=== PATIENT | male | born 1955 | race Caucasian/White ===

== ENCOUNTER 2017-04-25 08:35 | Inpatient (IN) | payer MEDICAID ==
[2017-04-25] MEDS ORDERED: ACETAMINOPHEN 325 MG TABLET ONE (11:15)
[2017-04-25] MEDS ORDERED: CEFAZOLIN SODIUM/DEXTROSE,ISO 50 ML IV ONE (11:15)
[2017-04-25] MEDS ORDERED: oxyCODONE HCL SR 10MG TAB.SR.12H PO ONE (11:15)
[2017-04-25] MEDS ORDERED: CELECOXIB 100 MG CAPSULE ONE (11:29)
[2017-04-25] MEDS ORDERED: MIDAZOLAM HCL 2 MG/2ML VIAL ONE (12:06)
[2017-04-25] MEDS ORDERED: MORPHINE SULFATE/PF 10 MG/10ML (1MG/ML) AMPUL ONE (12:06)
[2017-04-25] MEDS ORDERED: BACITRACIN 50000 UNITS/VIAL ONE (12:51)
[2017-04-25] MEDS ORDERED: ANESTHESIA TRAY IN PYXIS 1 EA TRAY MC ONE (13:12)
[2017-04-25] MEDS ORDERED: TRANEXAMIC ACID 1,500 MG in SODIUM CHLORIDE IRRIG SOLUTION 85 ML IR ONE (14:00)
[2017-04-25] MEDS ORDERED: SODIUM CHLORIDE IRRIG IR ONE (14:00)
[2017-04-25] MEDS ORDERED: TRANEXAMIC ACID IR ONE (14:00)
[2017-04-25] MEDS ORDERED: HYDROMORPHONE INJ 2 MG/ML DISP.SYRIN ONE (14:39)
[2017-04-25 16:00] VITALS: BP 117/73
--- NOTE | 2017-04-25 16:00 | NUR ---
RN MS NOTES RECEIVED PT FROM O.R. STAFF, PT IS AWAKE, ALERT AND ORIENTED, WITH PAIN AT RIGHT HIP 6/10, NOT IN DISTRESS, WITH ABDUCTION PILLOW IN PLACE, VITAL SIGNS TAKEN AND MONITORED, POST OP ORDERS RECEIVED FROM DR. CONTRERAS, NOTED AND CARRIED OUT, CALL LIGHT PLACED WITHIN REACH, F/C DRAINING WELL, NEEDS ATTENDED.
[2017-04-25] MEDS ORDERED: SENOKOT 8.6 MG TABLET PO PRN (17:00)
[2017-04-25] MEDS ORDERED: COLACE 250 MG CAPSULE PO PRN (17:00)
[2017-04-25] MEDS ORDERED: RIVAROXABAN 10 MG TABLET PO SCH (17:00)
[2017-04-25] MEDS ORDERED: ONDANSETRON HCL/PF 4 MG/2 ML VIAL IVP PRN (17:00)
[2017-04-25] MEDS ORDERED: AMBIEN 5 MG TABLET PO PRN (17:00)
[2017-04-25] MEDS ORDERED: HYDROMORPHONE 1 MG/1 ML DISP.SYRIN IV PRN (17:00)
[2017-04-25] MEDS ORDERED: DULCOLAX 10 MG/SUPP.RECT RC PRN (17:00)
[2017-04-25] MEDS ORDERED: NALOXONE HCL 0.4 MG/ML AMPUL IV PRN ×3 (17:00)
[2017-04-25] MEDS ORDERED: TYLENOL 650 MG TABLET PO PRN (17:00)
[2017-04-25] MEDS ORDERED: diphenhydrAMINE HCL 50 MG/ML VIAL IV PRN (17:00)
[2017-04-25] MEDS ORDERED: LORAZEPAM 1 MG TABLET PO PRN (17:30)
[2017-04-25] MEDS ORDERED: diphenhydrAMINE HCL 25 MG CAPSULE PO PRN (17:30)
[2017-04-25] MEDS ORDERED: MAG HYDROX/AL HYDROX/SIMETH 30 ML UDC PO PRN (17:30)
[2017-04-25] MEDS: ZOFRAN 4mg/2ML IV PRN ×2 (17:38→22:53)
[2017-04-25] MEDS: IV LR 1000 ML 1,000 ML IV PRN (17:40)
--- NOTE | 2017-04-25 18:30 | NUR ---
RN MS NOTES PT IN BED, RESTING, PT SEEN BY DR. SHAIKH, PAIN MEDICATION GIVEN FOR PAIN MANAGEMENT, IV FLUIDS INFUSING WELL, CALL LIGHT WITHIN REACH, KEPT COMFORTABLE.
[2017-04-25] MEDS: HYDROMORPHONE 1 MG/1 ML DISP.SYRIN SQ PRN (18:48)
[2017-04-25] MEDS: NICOTINE PATCH (21MG) 21 MG PATCH.TD24 TD SCH (18:49)
--- NOTE | 2017-04-25 19:40 | NUR ---
PRINTED CIRCUIT BOARD PANELS DEBURRER OPENING NOTES RECEIVED PATIENT RESTING IN BED, AWAKE, A & O X 4. NO SOB, @ RA, NO ACUTE DISTRESS NOTED. MILD PAIN NOTED TO RIGHT HIP AREA, BUT TOLERABLE. PT STATED WILL LET THE NURSE KNOW WHEN PAIN MED IS NEEDED. IV ACCESS TO LAC INTACT PATENT RUNNING WITH LR @ 100ML/HR. F/C IN PLACE, FLOWING WITH YELLOW COLOR URINE. WILL MANAGE THE PAIN WITH PAIN MEDS. CALL LIGHT WITHIN REACH. BED IN LOW LOCKED POSITION.. WILL CONTINUE TO OBSERVE CLOSELY.
[2017-04-25 20:00] VITALS: BP 112/72
[2017-04-25] MEDS: PANTOPRAZOLE 40 MG TABLET.DR PO SCH (22:00)
[2017-04-25] MEDS: LORAZEPAM 1 MG TABLET PO SCH (22:00)
[2017-04-25] MEDS: ANCEF 1 G in IV D5W 50 ML IV SCH (22:00)
[2017-04-25] MEDS: oxyCODONE IR immediate release 5 MG PO PRN (22:45)
--- NOTE | 2017-04-25 22:45 | NUR ---
PRN OXYCODONE GIVEN PATIENT C/O RIGHT HIP PAIN, PRN PAIN MED GIVEN, WILL REASSESS FOR EFFECTIVENESS.
--- NOTE | 2017-04-25 22:53 | NUR ---
PRN ZOFRAN GIVEN PATIENT HAD EPISODE OF NAUSEA & VOMITING, PRN ZOFRAN WAS GIVEN & WILL CONTINUE TO MONITOR FOR EFFECTIVENESS OF THE MEDICINE.
[2017-04-26] VITALS (7 sets, daily range): BP systolic 107–127; BP diastolic 56–76
[2017-04-26] MEDS: ANCEF 1 G in IV D5W 50 ML IV SCH (05:30)
[2017-04-26] MEDS: IV LR 1000 ML 1,000 ML IV PRN (05:30)
--- NOTE | 2017-04-26 06:40 | NUR ---
BOAT HOIST OPERATOR HELPER CLOSING NOTES PATIENT RESTING IN BED, AWAKE, A & O X 4, SLEPT INTERMITTENTLY @ NIGHT. NO SOB, @ RA, NO ACUTE DISTRESS NOTED. PAIN MGMT DONE WITH ANALGESICS. IV ACCESS TO LAC INTACT PATENT RUNNING WITH LR @ 100ML/HR. F/C IN PLACE, FLOWING WITH DARK YELLOW COLOR URINE. ALL NEEDS MET. KEPT CLEAN & DRY.CALL LIGHT WITHIN REACH. BED IN LOW LOCKED POSITION. WILL ENDORSE TO AM RN FOR CONTINUITY OF CARE.
--- NOTE | 2017-04-26 07:30 | NUR ---
RN MS NOTES PT IN BED, ASLEEP, BREATHING PATTERN NORMAL, NO FACIAL GRIMACING OR MOANING, F/C DRAINING WELL, ABDUCTION PILLOW IN PLACE, IV FLUIDS INFUSING WELL, CALL LIGHT WITHIN REACH, KEPT HEALTH AND SAFETY COORDINATOR BED.
[2017-04-26] MEDS: NICOTINE PATCH (21MG) 21 MG PATCH.TD24 TD SCH (08:18)
[2017-04-26] MEDS: oxyCODONE IR immediate release 5 MG PO PRN (08:19)
[2017-04-26 09:06] LABS: HEMOGLOBIN 13.7 g/dL (13.5-17.5)
[2017-04-26] MEDS: HYDROMORPHONE 1 MG/1 ML DISP.SYRIN SQ PRN ×4 (11:50→22:58)
--- NOTE | 2017-04-26 13:00 | NUR ---
RN MS NOTES PT IN BED, AWAKE, ALERT AND ORIENTED, PAIN MEDICATION GIVEN ORDERED FOR PAIN MANEGEMENT, SEEN BY PHYSICAL THERAPIST, ABLE TO AMBULATE WITH A WALKER ALONG THE HALLWAY. NEEDS ATTENDED.
[2017-04-26] MEDS ORDERED: TAMSULOSIN 0.4 MG CAP.SR.24H PO ONE (16:30)
[2017-04-26] MEDS: RIVAROXABAN 10 MG TABLET PO SCH (17:21)
--- NOTE | 2017-04-26 18:57 | NUR ---
RN MS NOTES PT IN BED, AWAKE, ALERT AND ORIENTED, WITH COMPLAINT OF PAIN AT THE RIGHT HIP BUT DOES NOT WANT ANY PAIN MEDICATION AT THIS TIME, IVF INFUSING WELL, SEEN BY DR. SHAIKH, CALL LIGHT WITHIN REACH.
--- NOTE | 2017-04-26 19:30 | NUR ---
RN MS NOTES PT'S DOYLE REMOVED, TOLERATED PROCEDURE WELL, PROVIDED PT WITH URINAL AT BEDSIDE, ALSO PROVIDED WITH AN ELEVATED TOILET SEAT.
--- NOTE | 2017-04-26 19:30 | NUR ---
RN OPENING NOTES PATIENT IS IN BED, ALERT AND ORINTEDX4. VS STABLE. C/O PAIN 9/10 ON RIGHT HIP. NO SOB NOTED. RESPIRATIONS EVEN AND UNLABORED. FAMILY PRESENT AT BEDSIDE. IV ACCESS ON LEFT AC G 18 PATENT AND INTACT, INFUSING LR AT 100 ML/HR, NO REDNESS OR INFILTRATION NOTED. BED IN LOW AND LOCKED POSITION, CALL LIGHT WITHIN EASY REACH, SIDE RAILS X2. WILL CONTINUE TO MONITOR AND ASSESS DURING THE SHIFT.
[2017-04-26] MEDS: LORAZEPAM 1 MG TABLET PO SCH (22:56)
[2017-04-26] MEDS: PANTOPRAZOLE 40 MG TABLET.DR PO SCH (22:56)
[2017-04-27] MEDS: HYDROMORPHONE 1 MG/1 ML DISP.SYRIN SQ PRN ×5 (02:42→19:25)
--- NOTE | 2017-04-27 07:10 | NUR ---
RN NOTES: PATIENT AOX4. NONLABORED BREATHING NOTED ON ROOM AIR. NO SOB. IV ON LEFT AC GAUGE 18 PATENT AND INTACT. BED IN LOWEST LOCKED POSITION. CALL LIGHT WITHIN REACH. WILL CONTINUE TO MONITOR
--- NOTE | 2017-04-27 07:10 | NUR ---
RN CLOSING NOTES PATIENT IS IN BED, ALERT AND ORINTEDX4. VS STABLE. NO SOB NOTED. RESPIRATIONS EVEN AND UNLABORED.IV ACCESS ON LEFT AC G 18 PATENT AND INTACT, NO REDNESS OR INFILTRATION NOTED. ALL NEEDS ARE MET AND MEDICATIONS GIVEN PER MD ORDER. BED IN LOW AND LOCKED POSITION, CALL LIGHT WITHIN EASY REACH, SIDE RAILS X2. WILL ENDORSE TO RN DAY SHIFT FOR MEGHNA.
[2017-04-27 08:00] VITALS: BP 119/72
[2017-04-27] MEDS: NICOTINE PATCH (21MG) 21 MG PATCH.TD24 TD SCH (08:04)
[2017-04-27 08:11] LABS: BASOPHILS # (AUTO) 0.1 /CMM (0.0-0.2); BASOPHILS % (AUTO) 0.6 % (0.0-2.0); EOSINOPHILS # (AUTO) 0.1 /CMM (0.0-0.7); EOSINOPHILS % (AUTO) 1.2 % (0.0-6.0); HEMATOCRIT 37 % (39-51); LYMPHOCYTES # (AUTO) 2.5 /CMM (0.8-4.8); LYMPHOCYTES % (AUTO) 28.4 % (20.0-44.0); MEAN CORPUSCULAR HEMOGLOBIN 33 PG (26.0-33.0); MEAN CORPUSCULAR HGB CONC 35 g/dl (31.0-36.0); MEAN CORPUSCULAR VOLUME 93 fL (80-96); MONOCYTES # (AUTO) 0.7 /CMM (0.1-1.30); MONOCYTES % (AUTO) 7.8 % (2.0-12.0); NEUTROPHILS # (AUTO) 5.6 /CMM (1.8-8.9); PLATELET COUNT (AUTO) 169 /CMM (150-450); RDW COEFFICIENT OF VARIATION 13.5 (11.5-15.0); RED BLOOD CELL COUNT(AUTO) 4.01 MIL/uL (4.5-6.0)
[2017-04-27 08:51] LABS: CALCIUM, SERUM 8.6 mg/dL (8.5-10.1); CREATININE 0.8 mg/dL (0.6-1.3); MAGNESIUM 1.9 mg/dL (1.8-2.4); PHOSPHORUS 2.6 mg/dL (2.5-4.9); POTASSIUM 4.5 mmol/L (3.5-5.1)
[2017-04-27] MEDS: oxyCODONE IR immediate release 5 MG PO PRN (09:03)
[2017-04-27 16:00] VITALS: BP 110/70
[2017-04-27] MEDS: RIVAROXABAN 10 MG TABLET PO SCH (17:22)
--- NOTE | 2017-04-27 19:30 | NUR ---
RN OPENING NOTES PATIENT IS IN BED, ALERT AND ORINTEDX4. VS STABLE. C/O PAIN 8/10 ON RIGHT HIP. NO SOB NOTED. RESPIRATIONS EVEN AND UNLABORED. IV ACCESS ON LEFT AC G 18 PATENT AND INTACT, NO REDNESS OR INFILTRATION NOTED. PATIENT IS WAITING TO BE DISCHARGED. ALL PAPERS SIGNED AND DISCHARGE TEACHING PROVIDED. BED IN LOW AND LOCKED POSITION, CALL LIGHT WITHIN EASY REACH, SIDE RAILS X2. WILL CONTINUE TO MONITOR.
--- NOTE | 2017-04-27 19:50 | NUR ---
RN NOTES PATIENT AOX4. PATIENT STABLE. NONLABORED BREATHING NOTED ON ROOM AIR. NO SIGNS OF DISTRESS. PATIENT DISCHARGED HOME PER MD ORDERS. PATIENT EDUCATED ON BENEFITS AND RISKS OF STAYING AND BEING MONITORED. PATIENT REFUSING. DISCUSSED EXISTCARE, PRECRIPTIONS AT HOME, RISKS OF POSTOP SURGRIES, WELL VACCINES. VERBALIZED UNDERSTANDING AND INSISTED ON LEAVING TODAY. CONTACTED DR WANG AND HE ORDERED TO DISCHARGE HIM WITH HOME HEALTH. PATIENT ABLE TO AMBULATE WELL WITH PT, HEPLED WITH DRIVING PRACTICE/STAIRS CLIMBING AND DESCENDING.WALKER GIVEN TO PATIENT. NO SIGNS OF DISTRESS, TOLERATED WELL. PER ANESTHESIOLOGIST, HE IS OK TO GO HOME WELL. PATIENT EDUCATED TO FOLLOW UP WITH PRIMARY WITHIN 1 WEEK, AND WITH DR VILLELA WITHIN 1-2 WEEKS OF DISCHARGE. [facility] CHANGED THE DRESSING TODAY, DRESSING INTACT. PATIENT REFUSED TO HAVE PICTURE TAKEN OF WOUND. PATIENT TO LEAVE WITH GIRLFRIEND VIA PRIVATE CAR. IV TO BE TAKEN OUT BY NURSE GILMAN. ENDORSED TO NEXT SHIFT
--- NOTE | 2017-04-27 20:00 | NUR ---
RN CLOSING NOTES PATIENT DISCHARGED HOME WITH HIS GIRLFRIEND VIA PRIVATE CAR IN STABLE CONDITION. NO SOB NOTED. RESPIRATIONS EVEN AND UNLABORED. SKIN CLEAN AND DRY, DRESSING CHANGED BY [place] GIBSON TODAY. IV REMOVED. PATIENT REFUSED TO TAKE PICTURES OF THE WOUND. ALL PAPERS SIGNED AND DISCHARGE TEACHING PROVIDED. EXIT CARE COMPLETED. GAVE NUMBER OF DR CONTRERAS TO FOLLOW UP IN 1 TO 2 WEEKS OF DISCHARGE. ALL NEEDS ARE MET AND MEDICATIONS GIVEN PER MD ORDER.
[2017-04-28] MEDS ORDERED: RIVA10TA PO (08:43)
[2017-04-28] MEDS ORDERED: oxyCODONE HCL SR 10MG PO (08:43)
[2017-04-28] MEDS ORDERED: CELE100C (08:43)
== END 2017-04-27 20:05 | disposition home or self-care (01) | DRG 301 ==
LOC: DS 08:35 → MED 16:05
PROVIDERS: ADMIT Specialist; ATTEND Specialist
PROC: 0SR90JZ Replacement of Right Hip Joint with Synthetic Substitute, Open Approach (ICD-10-PCS; principal; 2017-04-25 17:50)
DX: M16.11 Unilateral primary osteoarthritis, right hip (principal); N20.0 Calculus of kidney; G89.29 Other chronic pain; Z87.442 Personal history of urinary calculi; Z72.0 Tobacco use; Z82.3 Family history of stroke; Z83.3 Family history of diabetes mellitus; Z82.49 Family history of ischemic heart disease and other diseases of the circulatory system; Z98.890 Other specified postprocedural states
CPT/HCPCS: 36415; 80048-TC; 83735-TC; 84100-TC; 85025-TC; 85027-TC; 86850-TC; 86921-TC; 87081-TC; 88305-TC; 88311-TC; 97110-TC; 97116-TC; 97530-TC; A4217; A4606; A6209; A6402; J0690; J1100; J1170; J2250; J2274; J2405; J2704; J7060; J7120; Z7610